=== PATIENT | female | born 1945 ===

== ENCOUNTER 2017-11-05 08:50 | Inpatient (IN) | payer MEDICARE, OTHER, SELFPAY | END 2017-11-08 13:40 | DRG 455 | PROVIDERS: Admitting Provider Orthopaedic Surgery Orthopaedic Surgery of the Spine; PCP Family Medicine; Visit Provider Orthopaedic Surgery Orthopaedic Surgery of the Spine | DX: M48.07 Spinal stenosis, lumbosacral region (principal); M43.17 Spondylolisthesis, lumbosacral region; M47.27 Other spondylosis with radiculopathy, lumbosacral region; M85.48 Solitary bone cyst, other site; J45.909 Unspecified asthma, uncomplicated; K21.9 Gastro-esophageal reflux disease without esophagitis; E66.9 Obesity, unspecified; Z68.38 Body mass index [BMI] 38.0-38.9, adult; E11.9 Type 2 diabetes mellitus without complications; I44.7 Left bundle-branch block, unspecified | CPT/HCPCS: 36415; 72100; 76001; 82962; 85027; 94760; 97116; 97162; 97165; 97530; 97535; C1776; C9290; J0131; J0330; J2060; J2175; J2250; J2405; J2704; J2765; J3010 ==